=== PATIENT | male | born 1950 | race Caucasian/White ===

== ENCOUNTER 2022-04-10 07:49 | Outpatient (CLI) | payer MEDICARE, SELFPAY ==
[2022-04-10 14:34] LABS: Alanine Aminotransferase* 23 U/L (4-50); Aspartate Amino Transferase* 40 U/L (12-35); Cholesterol* 144 mg/dL (90-199); Triglycerides* 54 mg/dL (40-149)
[2022-04-10 14:35] LABS: HDL Cholesterol* 64 mg/dL (>=40); LDL Cholesterol Calculated 69 mg/dL (<100)
== END 2022-04-10 07:50 | disposition home or self-care (01) ==
LOC: FRMLAB 07:50
PROVIDERS: PCP Family Medicine; Visit Provider Physician Assistant Medical
DX: E78.5 Hyperlipidemia, unspecified (principal)
CPT/HCPCS: 36415; 80061; 84450; 84460

== ENCOUNTER 2022-07-25 14:30 | Outpatient (CLI) | payer MEDICARE, SELFPAY ==
[2022-07-25 12:54] LABS: Albumin* 4.7 g/dL (3.3-5.0); Chloride* 104 mmol/L (96-114); Sodium* 140 mmol/L (135-149)
[2022-07-25 12:55] LABS: Potassium* 4.4 mmol/L (3.6-5.1)
[2022-07-25 12:56] LABS: Cholesterol* 179 mg/dL (90-199)
[2022-07-25 12:57] LABS: Alanine Aminotransferase* 22 U/L (4-50); Alkaline Phosphatase* 80 U/L (40-150); Aspartate Amino Transferase* 35 U/L (12-35); Bilirubin Total* 1.3 mg/dL (0.1-1.5); Blood Urea Nitrogen* 23 mg/dL (7-30); Carbon Dioxide* 26 mmol/L (20-32); Creatinine* 0.9 mg/dL (0.5-1.5); Estimated Glomerular Filt Rate 92 ml/min; Glucose* 91 mg/dL (60-115); Total Protein* 7.7 g/dL (6.0-8.3); Triglycerides* 104 mg/dL (40-149)
[2022-07-25 12:58] LABS: Calcium* 9.5 mg/dL (8.4-10.6); HDL Cholesterol* 64 mg/dL (>=40); LDL Cholesterol Calculated 94 mg/dL (<100)
[2022-07-28 08:50] LABS: Prostate Specific Antigen Free 0.7 ng/mL; Prostate Specific Antigen%Free 32 %; Prostate Specific AntigenTotal 2.2 ng/mL (0.0-4.0)
== END 2022-07-25 14:31 | disposition home or self-care (01) ==
PROVIDERS: PCP Family Medicine; Visit Provider Family Medicine
DX: E78.5 Hyperlipidemia, unspecified (principal); N40.0 Benign prostatic hyperplasia without lower urinary tract symptoms; N52.9 Male erectile dysfunction, unspecified; Z12.5 Encounter for screening for malignant neoplasm of prostate
CPT/HCPCS: 80053; 80061; 84153; 84154

== ENCOUNTER 2022-12-15 10:49 | Outpatient (CLI) | payer MEDICARE, SELFPAY | END 2022-12-15 10:50 | disposition home or self-care (01) | LOC: NFLDREF 12-17 13:35 | PROVIDERS: PCP Family Medicine; Referring Provider Family Medicine; Visit Provider Family Medicine | DX: Z00.00 Encounter for general adult medical examination without abnormal findings (principal); K62.5 Hemorrhage of anus and rectum; N40.0 Benign prostatic hyperplasia without lower urinary tract symptoms; E78.5 Hyperlipidemia, unspecified; E66.9 Obesity, unspecified | CPT/HCPCS: 87086; 87186 ==

== ENCOUNTER 2023-04-18 19:56 | Emergency (ER) | payer MEDICARE, SELFPAY ==
[2023-04-18 20:02] VITALS: BP 130/75; PULSE 73; RESP 20; TEMP 36.6; O2SAT 97
--- NOTE | 2023-04-18 20:12 | ED_ITS ---
HPI - General Adult General Chief complaint: Ear/Nose/Throat Problem Stated complaint: Foreign object lodged in throat Time Seen by Provider: 04/18/23 20:10 History of Present Illness HPI narrative: @ 1430, pt eating roast beef. beef caught in throat. pt has tried to vomit, unable to get obstruction out . pt able to breathe and speak without difficulty. pain rated 6/10 . pt has a history of this , vomiting in past has solved problem, today it has not. pt has tried to drink water, water comes back up. 72-year-old man presenting to the emergency department concern of impaction of roast beef in his esophagus. Is nauseated. He has intermittent intense pain. He has been somewhat obstructed in the past; 3 months ago was with some ham. Be able to pass this on his own though. Has never had an EGD. Would last 20 years has had to beto food with water often. He has tried to vomit only resulting water coming up basically. Not short of breath. History of CABG. Does not use nitro. No medications other than aspirin he says. tadalafil however comes up as potential interaction on orders. Related Data Home Medications Medication Instructions Recorded Confirmed aspirin 81 mg tablet,delayed 81 mg PO QDAY 07/23/22 12/16/22 release Previous Rx's Medication Instructions Recorded azelastine 0.05 % eye drops 1 drp ophthalmic (eye) BID #6 mL 07/23/22 mometasone 50 mcg/actuation nasal 2 spray intranasal BID #17 grams 07/23/22 spray tadalafil 20 mg tablet 20 mg PO .as Direc as needed PRN 07/23/22 sexual activity #90 tabs terazosin 2 mg capsule 2 mg PO QHS #90 caps 07/23/22 peg 3350-electrolytes 236 240 ml PO Q10M #4,000 mL 12/17/22 gram-22.74 gram-6.74 gram-5.86 gram solution (Golytely) ciprofloxacin HCl 500 mg tablet 500 mg PO Q12H #6 tabs 12/18/22 rosuvastatin 40 mg tablet 40 mg PO QDAY #90 tabs 12/18/22 Allergies Allergy/AdvReac Type Severity Reaction Status Date / Time tramadol Allergy Severe Vomiting Verified 12/16/22 10:00 Review of Systems Status of ROS: Reports: 6 or more systems reviewed and unremarkable except as noted in History and below [facility] Medical History History of seasonal allergies ?Z88.9 - Allergy status to unspecified drugs, medicaments and biological substances (ICD-10) History of multiple allergies ?Z88.9 - Allergy status to unspecified drugs, medicaments and biological substances (ICD-10) Surgical History Status post arthroscopy of right shoulder ?Z98.890 - Other specified postprocedural states (ICD-10) History of vasectomy ?Z98.52 - Vasectomy status (ICD-10) History of right inguinal hernia repair (09/05/10) ?Z98.890 - Other specified postprocedural states (ICD-10) ?Z87.19 - Personal history of other diseases of the digestive system (ICD-10) History of nasal septoplasty ?Z98.890 - Other specified postprocedural states (ICD-10) History of colonoscopy ?Z98.890 - Other specified postprocedural states (ICD-10) History of bilateral inguinal hernia repair ?Z98.890 - Other specified postprocedural states (ICD-10) ?Z87.19 - Personal history of other diseases of the digestive system (ICD-10) Family History Father Prostate cancer Social History Narrative: Consumes alcohol occasionally Does not use illicit drugs Nonsmoker Smoking Status: Never smoker Little interest or pleasure in doing things: not at all Feeling down, depressed, or hopeless: not at all Exam Narrative: Exam Narrative: Pleasant. Looks little uncomfortable. Generally flushed in his face. Oropharynx is moist no indication of injury or asymmetry. I do not hear any stridor. Lungs are generally clear though there seems to be some crepitus in the right lower lung. Extremities are well perfused without edema. Heart in a regular rate and rhythm. Const: Vital Signs, click to edit/add: Vital Signs - 24 hr 04/18/23 20:02 Temperature 97.9 F Pulse Rate [Right Pulse Oximeter] 73 Respiratory Rate 20 Blood Pressure [Ri ght Upper Arm] 130/75 Pulse Oximetry 97 Oxygen Delivery Me thod Room Air Documenting provider has reviewed patient's vital signs: yes Course Vital Signs Vital signs: Initial Vital Signs Temperature 97.9 F 04/18/23 20:02 Temperature Source Temporal Artery Scan 04/18/23 20:02 Pulse Rate 73 04/18/23 20:02 Pulse Rhythm Regular 04/18/23 20:02 Respiratory Rate 20 04/18/23 20:02 Blood Pressure 130/75 04/18/23 20:02 Blood Pressure Mean 93 04/18/23 20:02 Blood Pressure Position Sitting 04/18/23 20:02 Pulse Oximetry 97 04/18/23 20:02 Oxygen Delivery Method Room Air 04/18/23 20:02 Vital Signs Temperature 97.9 F 04/18/23 20:02 Pulse Rate 73 04/18/23 20:02 Respiratory Rate 20 04/18/23 20:02 Blood Pressure 130/75 04/18/23 20:02 Pulse Oximetry 97 04/18/23 20:02 Oxygen Delivery Method Room Air 04/18/23 20:02 Temperature 97.9 F 04/18/23 20:02 Pulse Rate 73 04/18/23 20:02 Respiratory Rate 20 04/18/23 20:02 Blood Pressure 130/75 04/18/23 20:02 Pulse Oximetry 97 04/18/23 20:02 Oxygen Delivery Method Room Air 04/18/23 20:02 Medical Decision Making MDM Narrative Medical decision making narrative: Has an emesis bag nearby. Given story would sound to be a complete esophageal obstruction/impaction. Confirming last dose of Cialis. Anticipating giving Zofran and nitro both ODT followed by easy gas. If this does not work IV placement calcium channel tom, nitro, possibly lorazepam. And then repeating EZ gas. Initial round of treatment seems to of allow for passage of this food bolus. He is swallowing water without difficulty. Seems much more comfortable. See patient discharge plan Discharge Plan Discharge Clinical Impression: Esophageal obstruction due to food impaction Patient Disposition: Home, Self-Care Condition: Improved Additional Instructions: May want to eat softer food over the next few days. I would follow-up with your primary care provider or possibly with general surgery or Dr. Pete marina at the [facility]. I think it is time to do an upper endoscopy. You might consider doing this though with some provider who would also be providing esophageal dilatation if necessary. There may be some other studies like a swallow study that would be helpful? Please discuss. Return as necessary. Prescriptions: No Action aspirin 81 mg tablet,delayed release (DR/EC) 81 mg PO QDAY mometasone 50 mcg/actuation spray,non-aerosol 2 spray intranasal BID Qty: 17 3RF azelastine 0.05 % drops 1 drp ophthalmic (eye) BID Qty: 6 3RF tadalafil 20 mg tablet 20 mg PO .as Direc as needed PRN (Reason: sexual activity) Qty: 90 3RF Rx Instructions: 1 tab by mouth every 24-48 hours as needed. terazosin 2 mg capsule 2 mg PO QHS Qty: 90 3RF peg 3350-electrolytes [Golytely] 236-22.74-6.74 -5.86 gram recon soln 240 ml PO Q10M Qty: 4000 0RF Rx Instructions: until fecal effluent is clear rosuvastatin 40 mg tablet 40 mg PO QDAY Qty: 90 3RF ciprofloxacin HCl 500 mg tablet 500 mg PO Q12H Qty: 6 0RF Follow Up/Referrals: Sylvia Foreman DO [Primary Care Provider] - Stand Alone Forms: [email or web address] Info Instructions
--- OUTSIDE RECORDS SUMMARY | 2023-04-18 20:30 | XMS_ITS | Patient Health Record ---
Author Name Unknown Organization [facility], Address [address] [place] [address] Care Team Providers Care Shoe Sticks Repairer Name Role Phone Robert Armenta Unavailable [phone] ALLERGIES No Known Allergies REASON FOR REFERRAL No Information MEDICATIONS Medication SIG (Take, Route, Frequency, Duration) Notes Start Date End Date Status Azelastine HCl 0.05 % INSTILL ONE DROP I N EACH EYE ONE TO TWO TIMES A DAY DIRECTED NEEDED Ophthalmic for 90 Days Active Atorvastatin Calcium 40 MG Oral for 90 Days Active Rosuvastatin Calcium 40 MG TAKE 1 TABLET BY MOUTH AT BEDTIME Oral for 90 Days Active Tadalafil 20 MG TAKE 1 TABLET BY DILLON TH EVERY 24-48 HOURS NEEDED FOR SEXUAL ACTIVITY DIRECTED Oral for 90 Days Active Mometasone Furoate 50 MCG/ACT INHALE TWO SPRAYS INTO BOTH NOSTRILS TWO TIMES A DAY NEEDED FOR SEVERE NASAL CONGESTION Nasal for 30 Days Active Terazosin HCl 2 MG Oral for 90 Days Active Tamsulosin HCl 0.4 MG TAKE TWO CAPSULES BY MOUTH EVERY DAY Oral for 90 Days Active SOCIAL HISTORY Tobacco Use: Social History Observation Description Date Details (start date - stop date) Never Smoker NA - NA Sex Assigned At : Social History Observation Description Sex Assigned At Unknown Tobacco Use/Smoking Question Answer Notes Are you a: never smoker Alcohol Screen (Audit-C) Question Answer Notes Did you have a drink contain ing alcohol in the past year? Yes How often did you have 6 or more drinks on one occasion in the past year? Never (0 point) How many drinks did you have on a typical day when you were drinking in the past year? 1 or 2 drinks (0 point) How often did you have a dri nk containing alcohol in the past year? 2 to 4 times a month (2 points) PROBLEMS Problem Type ICD Code Onset Dates Problem Status W/U Status Risk SNOMED Code Notes Problem Allergic rhinitis (J30.9) Active confirmed 00754835 VITAL SIGNS Heart Rate 68 /min 08/29/2022 Oximetry 98 % 08/29/2022 Weight-kg 86.18 kg 08/29/2022 Height 5 ft 6 in in 08/29/2022 Weight 190 lbs 08/29/2022 BMI 30.66 kg/m2 08/29/2022 Encounters Encounter Location Date Provider Diagnosis [facility] [place] [address] [place], [place] [id number] 08/29/2022 Robert Armenta Allergic rhinitis J30.9 [facility] [place] [address] [place], [place] [id number] 08/29/2022 Robert Armenta ASSESSMENTS Encounter Date Diagnosis Assessment Notes Treatment Notes Treatment Clinical Notes 08/29/2022 Allergic rhinitis (ICD-10 - J30.9) PLAN OF TREATMENT No Information Insurance Providers Payer Name Payer Address Payer Phone Subscriber Number Group Number Insured Name Patient Relationship to Insured Coverage Start Date Coverage End Date [facility] [address] [place] [address] [id number] JOVI Gottlieb KEYANNA Self - patient is the insured MEDICAL (GENERAL) HISTORY Medical History History ICD Code Please write in any medical problems you have been diagnosed with.: Heart and prostate. Please select any of the fol lowing conditions you have had:: prostate enlargement (BPH),sleep apnea. Please write in any neurologic problems you have:: None. Have you had cancer? 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 Surgical History Surgery Date(Month/Year) Hospitalization History Reason Date(Month/Year)
--- NOTE | 2023-04-18 20:44 | ED.NURSE ---
Pt given one zofran and one nitro tablet, then given EZ Gas. Pt states he was burping and thinks meat may have gone down and is no longer stuck in his esophagus. Pt able to drink water, small sips without throwing it up. Doctor notified.
== END 2023-04-18 21:30 | disposition home or self-care (01) ==
PROVIDERS: Emergency Provider Family Medicine; PCP Family Medicine
DX: T18.128A Food in esophagus causing other injury, initial encounter (principal)
CPT/HCPCS: 99283; 99284

== ENCOUNTER 2023-05-06 09:36 | Outpatient (CLI) | payer MEDICARE, SELFPAY ==
--- OUTSIDE RECORDS SUMMARY | 2023-05-06 09:40 | XMS_ITS | Patient Health Record ---
Author Name Unknown Organization [facility], Address [address] [place] [address] Care Team Providers Care Quality Control Operator Name Role Phone Robert Armenta Unavailable [phone] ALLERGIES No Known Allergies REASON FOR REFERRAL [...] Notes Problem Allergic rhinitis (J30.9) Active confirmed [id number] VITAL SIGNS Heart Rate 68 /min 08/29/2022 Oximetry 98 % 08/29/2022 Weight-kg 86.18 kg 08/29/2022 Height 5 ft 6 in in 08/29/2022 Weight 190 lbs 08/29/2022 BMI 30.66 kg/m2 08/29/2022 Encounters Encounter Location Date Provider Diagnosis [facility] [address] [place], [place] [id number] 08/29/2022 Robert Armenta [facility] [place] [address] [place], [place] [id number] 08/29/2022 Robert Armenta Allergic rhinitis J30.9 ASSESSMENTS Encounter Date Diagnosis Assessment Notes Treatment Notes Treatment Clinical Notes 08/29/2022 Allergic rhinitis (ICD-10 - J30.9) PLAN OF TREATMENT No Information Insurance Providers Payer Name Payer Address Payer Phone Subscriber Number Group Number Insured Name Patient Relationship to Insured Coverage Start Date Coverage End Date [facility] [address] [place] [address] [id number] JOVI Gottlieb KEYANNA Self - patient is [...]
--- NOTE | 2023-05-06 09:45 | CRLHL7_ITS ---
For Patients: As a result of the Century Cures Act, medical imaging exams and procedure reports are released immediately into your electronic medical record. You may view this report before your referring provider. If you have questions, please contact your health care provider. Technique: Double-contrast esophagram performed after the uneventful administration of effervescent crystals and thick barium followed by thin barium. Fluoroscopy time 92 second. Indication: Esophageal Obstruction Comparison: None. Findings: Spontaneous reflux noted to the proximal esophagus. Decreased esophageal motility. Inflammatory changes involving the distal esophagus suspected. Small sliding hernia. No aspiration. A small posterior or pharyngeal diverticulum is present. Impression: Large volume spontaneous reflux to the proximal esophagus along with suspicion of distal reflux esophagitis. Associated delayed esophageal transit and small sliding hiatal hernia. Dictated by Robert Beaulieu MD @ 05/06/2023 10:54:13 AM (Electronically Signed)
== END 2023-05-06 09:37 | disposition home or self-care (01) ==
LOC: RAD 09:36
PROVIDERS: PCP Family Medicine; Visit Provider Family Medicine
DX: K22.2 Esophageal obstruction (principal); K21.9 Gastro-esophageal reflux disease without esophagitis; T18.128A Food in esophagus causing other injury, initial encounter
CPT/HCPCS: 74221

== ENCOUNTER 2023-05-19 10:45 | Outpatient (CLI) | payer MEDICARE, SELFPAY ==
--- NOTE | 2023-05-19 11:50 | W.ANESCHARGE ---
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
--- NOTE | 2023-05-19 12:08 | W.ANESCHARGE ---
Anesthesia Charges Start Date/Time Anesthesia Start Date: 05/19/23 Anesthesia Start Time: 11:29 Stop Date/Time Anesthesia Stop Date: 05/19/23 Anesthesia Stop Time: 11:47 Summary Extremes of Age - Over 70 or under 1: MDA
== END 2023-05-19 10:46 | disposition home or self-care (01) ==
LOC: OP CLINIC 10:46
PROVIDERS: PCP Family Medicine; Visit Provider Surgery
DX: R13.10 Dysphagia, unspecified (principal); K22.89 Other specified disease of esophagus; K44.9 Diaphragmatic hernia without obstruction or gangrene; K21.00 Gastro-esophageal reflux disease with esophagitis, without bleeding; K31.89 Other diseases of stomach and duodenum
CPT/HCPCS: 00731; 43239; 88305; 99100; J2704; J3490

== ENCOUNTER 2023-08-13 09:17 | Outpatient (CLI) | payer MEDICARE, SELFPAY | END 2023-08-13 09:18 | disposition home or self-care (01) | LOC: FRMREF 09:18 | PROVIDERS: PCP Family Medicine; Visit Provider Family Medicine | DX: E78.2 Mixed hyperlipidemia (principal) | CPT/HCPCS: 80053; 80061 ==

== ENCOUNTER 2024-03-16 09:42 | Emergency (ER) | payer MEDICARE, SELFPAY ==
[2024-03-16] VITALS (14 sets, daily range): BP systolic 101–137; BP diastolic 51–87; PULSE 52–68; RESP 18; TEMP 35.9; O2SAT 94–98; BMI 30.7
--- NOTE | 2024-03-16 10:09 | CRLHL7_ITS ---
For Patients: As a result of the Cures Act, medical imaging exams and procedure reports are released immediately into your electronic medical record. You may view this report before your referring provider. If you have questions, please contact your health care provider. Indication: Off balance, falls to the left, right hand tremor Technique: Multiplanar, multisequence MRI of the brain obtained without contrast. Comparison: None Findings: No evidence for recent hemorrhage or infarct. No midline shift, hydrocephalus or herniation. Mild generalized cerebral volume loss. Scattered FLAIR hyperintense foci throughout the supratentorial white matter and joseph, typical of chronic microangiopathy. Unremarkable midline structures. Grossly preserved major expected intracranial flow voids. Normal calvarial marrow signal. Diffuse paranasal sinus mucosal thickening, with multifocal ethmoid air cell opacification, and bilateral inferior maxillary sinus mucous retention cysts/polyps. No mastoid effusion. Unremarkable orbits. Impression: 1. No evidence of acute intracranial abnormality. 2. Mild generalized cerebral volume loss and mild chronic microangiopathy changes. 3. Diffuse paranasal sinus mucosal inflammatory changes, with multifocal ethmoid air cell opacification and bilateral maxillary sinus mucous retention cysts/polyps. Dictated by Jody Hastings MD @ 03/16/2024 11:02:48 AM (Electronically Signed)
--- OUTSIDE RECORDS SUMMARY | 2024-03-16 10:21 | XMS_ITS | Patient Health Record ---
Author Organization [facility], Address [address] [place] [address] Care Team Providers Care Audio Production Engineer Name Role Phone Robert Armenta [facility] [phone] Allergies No Known Allergies Reason For Referral No Information Medications Medication SIG (Take, Route, Frequency, Duration) Notes Start Date End Date Status Atorvastatin Calcium 40 MG Oral for 90 Days Active Azelastine HCl 0.05 % INSTILL ONE DROP I N EACH EYE ONE TO TWO TIMES A DAY DIRECTED NEEDED Ophthalmic for 90 Days Active Tamsulosin HCl 0.4 MG TAKE TWO CAPSULES BY MOUTH EVERY DAY Oral for 90 Days Active Terazosin HCl 2 MG Oral for 90 Days Active Social History Tobacco Use: Social History Observation Description Date Details (start date - stop date) Never Smoker NA - NA Tobacco Use/Smoking Question Answer Notes Are you a: never smoker Alcohol Screen (Audit-C) Question Answer Notes Did you have a drink contain ing alcohol in the past year? No How often did you have 6 or [...] to 4 times a month (2 points) Problems Problem Type SNOMED Code ICD Code Onset Dates Problem Status W/U Status Risk Notes Problem [id number] Allergic rhinitis (J30.9) Active confirmed Vital Signs Heart Rate 60 /min 09/10/2023 Oximetry 98 % 09/10/2023 Weight-kg 86.18 kg 09/10/2023 Height 5 ft 6 in in 09/10/2023 Weight 190 lbs 09/10/2023 BMI 30.66 kg/m2 09/10/2023 Encounters Encounter Location Date Provider Diagnosis [facility] [place] [address] [place], [place] [phone] 09/10/2023 Robert Armenta Seasonal allergic rhinitis due to pollen J30.1 Assessments Encounter Date Diagnosis (ICD Code) Assessment Notes Treatment Notes Treatment Clinical Notes 09/10/2023 Seasonal allergic rhinitis due to pollen (ICD-10 - J30.1) 09/10/2023 Other Patient doing w ell on immunotherapy I will continue the current regimen and I will see him back in a year. Plan Of Treatment No Information Insurance Providers Payer Name Payer Address Payer Phone Subscriber Number Group Number Insured Name Patient Relationship to Insured Coverage Start Date Coverage End Date [facility] [address] [place] [address] [id number] JOVI Gottlieb KEYANNA Self - patient is the insured Medical (General) History Medical History History ICD Code Please write in any medical problems you have been diagnosed with.: Heart and prostate Please select any of the fol lowing conditions you have had:: prostate enlargement (BPH),sleep apnea Please write in any neurologic problems you have:: None Have you had cancer? Please specify if y es: Yes skin cancer basil cell Please select any of the fol lowing conditions you have had:: coronary artery disease, gastroesophageal reflux disease (GERD), prostate enlargement (BPH), sleep apnea Please write in any neurologic problems you have:: None Have you had cancer? Please specify if y es: Yes basal cell Please write in any medical problems you have been diagnosed with.: Prostrate sleep apena and heart Surgical History Surgery Date(Month/Year) Hospitalization History Reason Date(Month/Year)
--- OUTSIDE RECORDS SUMMARY | 2024-03-16 10:22 | XMS_ITS | Clinical Summary ---
Author Organization [facility] Address [place], [place] [address] Care Team Providers Care Preschool Assistant Principal Name Role Phone Compa Chirinos MD Primary Care Provider [phone] Allergies No known active allergies Medications Medication Sig Dispensed Refills Start Date End Date Status atorvastatin (LIPITOR) 40 mg tablet Take 40 mg by mouth at bedtime. 3 12/07/2018 Active metoprolol tartrate (LOPRESSOR) 25 mg tablet Take 12.5 mg by mouth once daily. 2 10/20/2018 Active tamsulosin (FLOMAX) 0.4 mg capsule Take 0.8 mg by mouth once daily in the afternoon. 2 11/23/2018 Active tadalafil (CIALIS) 5 mg tabletIndications:Davie ign prostatic hyperplasia with weak urinary stream Take 1 tablet by mouth once daily if needed for Erectile Dysfunction. Take 30 minutes before sexual activity. 30 tablet 11 01/05/2019 Active aspirin (ECOTRIN) 81 mg enteric coated tablet Take 1 tablet by mouth once daily with a meal. 0 08/09/2019 Active Active Problems Problem Noted Date Diagnosed Date Coronary artery disease invo lving king salmon coronary artery of king salmon heart without angina pectoris 10/11/2021 Mixed hyperlipidemia 10/11/2021 History of colon polyps 08/10/2019 Overview: Colonoscopy 07/2019 normal, repeat in 5 years Urinary frequency 02/07/2019 Benign prostatic hyperplasia with weak urinary s tream 01/05/2019 Social History Tobacco Use Types Packs/Day Years Used Date Smoking Tobacco: Never Smokeless Tobacco: Never Tobacco Cessation:Counseling Given: Yes Alcohol Use Standard Drinks/Week Comments Not Currently 0 (1 standard drink = 0.6 oz pur e alcohol) Social Connections Answer Date Recorded Frequency of Communication with Friends and Fami ly Not on file 12/10/2023 Financial Resource Strain Answer Date R ecorded Difficulty of Paying Living Expenses Not on file 10/11/2021 Difficulty of Paying Living Expenses Not on file 10/11/2021 Sex and Gender Information Value Date Recorded Sex Assigned at Not on file Gender Identity Not on file Sexual Orientation Not on file Obstetrics History Last Filed Vital Signs Vital Sign Reading Time Taken Comments Blood Pressure 126/77 07/28/2019 3:28 PM [employer]ELLET [employer] INSPECTOR Pulse 51 07/28/2019 3:28 PM [employer]LET [employer] INSPECTOR Temperature 36.4 ??C (97.5 ??F) 02/07/2019 1 0:10 AM CDT Respiratory Rate 16 02/07/2019 10:1 0 AM CDT Oxygen Saturation 97% 07/28/2019 3:2 8 PM P[employer]LET [employer] INSPECTOR Inhaled Oxygen Concentration - - Weight 97.5 kg (214 lb 14.4 oz) 07/28/2019 3:28 PM PELLET [employer] INSPECTOR Height 165.1 cm (5' 5) 01/05/2019 2:38 PM CDT Per patient Body Mass Index 35.76 01/05/2019 2:38 PM CDT Plan of Treatment Health Maintenance Due Date Last Done Comments Tdap 1962 Depression screening for age 12+ 1963 Hepatitis C screening for age 18-79 1969 Tetanus booster 1971 Lipids for age 45-75 1996 Zoster (shingles) series for age 50+ (1 of 2) 2001 Medicare Wellness for age 65+ 2016 Pneumococcal series for age 65+ (1 of 1 - PCV) 2016 BMI (ht and wt on same day) for age 18+ 01/06/2020 0 01/05/2019 COVID-19 vaccine series ( season) 2023 11/24/2020, 11/03/2020 Influenza for age 65+ 04/24/2024 Colonoscopy through age 75 08/09/2024 08/09/2019, Procedures Procedure Name Priority Date/Time Associated Diagnosis Comments COLONOSCOPY 08/09/2019 9:14 AM PELLET POST INSPECTOR from Last 3 Months or Most Recently Relevant to Health Maintenance Results * COLONOSCOPY (08/09/2019 9:14 AM PELLET POST INSPECTOR) 08/09/2019 9:14 AM PELLET POST INSPECTOR Narrative Transcriptions Fran Freeman MD - 08/09/2019 12:22 PM CST Patient Name: Osbaldo Betts Procedure Date: 08/09/2019 Gender: Male Date of : 1950 Admit Type: Outpatient Procedure: Colonoscopy Proceduralist: Fran Freeman MD , Danita Holman RN(Nurse) Indications/Pre-Op Diagnosis: Last colonoscopy: March 2017, Clinically significant diarrhea of unexplained origin, Personal history of colonic polyps Medications: Fentanyl 100 micrograms IV, Midazolam 4 mgIV, The level of sedation administered wasmoderate Procedure Description: The patient had risks, benefits and alternatives explained to andgave informed consent. The patient had a stable cardiopulmonary status and judged an adequate candidate for conscious sedation. The colonoscope was passed through the anus and advanced to 6 cm into the ileum. The colonoscopy was performed without difficulty. Thepatient tolerated the procedure well. The quality of the bowel preparationwas good. The terminal ileum, ileocecal valve, appendiceal orifice, and rectum were photographed. Complications: No immediate complications. Estimated Blood Loss & Specimen: Estimated blood loss: none. Specimen collected - Yes and sent to Laboratory Findings: The perianal and digital rectal examinations were normal. The terminal ileum appeared normal. Biopsies for histology were taken with a cold forceps from the entire colon for evaluation of microscopic colitis. The colon (entire examined portion) was moderately redundant. The exam was otherwise without abnormality on direct and retroflexion views. Impressions/Post-Op Diagnosis: - The examined portion of the ileum was normal. - Redundant colon. - The examination was otherwise normal on direct and retroflexionviews. - Biopsies were taken with a cold forceps from the entire colon for evaluation of microscopic colitis. Recommendation: - Patient has a contact number available for emergencies. The signsand symptoms of potential delayed complications were discussed with the patient. Return to normal activities tomorrow. Written discharge instructions were provided to the patient. - Resume previous diet. - Continue present medications. - Await pathology results. - Repeat colonoscopy in 5 years for surveillance. Moderate Sedation: Moderate (conscious) sedation was administered by the endoscopy nurse and supervised by the endoscopist. The following parameters were monitored: oxygen saturation, heart rate, respiratory rate, blood pressure, adequacy of pulmonary ventilation and reponse to care. [facility] and nursing notes for moderate sedation details. Total physician intraservice time was 26 minutes. Fran Freeman MD 08/09/2019 12:21:57 PM This report has been signed electronically. Note Initiated On: 08/09/2019 9:14 AM Procedure Code(s): --- Professional --- 91533, Colonoscopy, flexible; with biopsy, single or multiple Diagnosis Code(s): --- Professional --- R19.7, Diarrhea, unspecified Z86.010, Personal history of colonicpolyps Q43.8, Other specified congenitalmalformations of intestine CPT copyright 2018 [employer]. All rights reserved. The codes documented in this report are preliminary and upon equipment engineer reviewmay be revised to meet current compliance requirements. Scope In: 10:02:30 AM Scope Withdrawal Time 0 hours 10 minutes 37 seconds Scope Out: 10:26:44 AM Fran Freeman MD PROCEDURE ORD from Last 3 Months or Most Recently Relevant to Health Maintenance Care Teams Preschool Assistant Principal Relationship Specialty Start Date End Date Compa Chirinos MD [address] [place] [id number] PCP - General Family Practice 07/28/19
--- OUTSIDE RECORDS SUMMARY | 2024-03-16 10:22 | XMS_ITS | Data Portability ---
Author Organization [place] [facility] Address [address] [place] [address] Assessment No assessment recorded. Plan of Treatment Reminders Order Date Submit Date Provider Last Modified By Organization Details Last Modified Time Details Appointments ESTABLISH ED 10 2023 09:40A Coco Castellano MD Not available Not available Not available Lab urinalysi s, [facility], [address], [place], [address], 01/20/2023 11:19:40 Referral None recorded. Procedures bladder scan (PROC) [facility]23 [facility] [address], [address], [place], [address], 01/20/2023 11:19:40 bladder scan (PROC) [id number], [address], [address], [place], [address], 03/24/2023 14:42:54 Surgeries None recorded. Imaging None recorded. Medication Orders tadal[facility]il 5 mg tablet 2022 023 [id number] [address] , [place], [address], 01/20/2023 11:27:49 tadalafil 5 mg tablet 2022 023 [id number], [address], [place], [address], 03/24/2023 14:53:22 Patient TargetsNo targets recorded. Patient Instructions Encounter Date Encounter Id Patient Instructions Last Modified By Organization Details Last Modified Time 01/20/2023 [id number] will try adding daily tadalafil 5mg in the AM. plan recheck in 2 months. [email or web address] Not available 01/20/2023 11:29:16 03/24/2023 [id number] will continue terazosin and tadalafil 5mg daily. plan rtc 1 year [email or web address] Not available 03/24/2023 14:53:44 Reason for Referral None Reported. Results Created Date Observation Date Name Description Value Unit Range Abnormal Flag LastModifiedBy Organization Detail LastModifiedTime 01/21/2001/20/2023 bladd er scan (PROC ) Volume (in mL) 85ml Not Available [address] [address], [place], [address], 01/20/2023 11:19:31 01/21/20 23 01/20/2023 urina lysis , dipst ick pH-Status 7.0 Not Available [address] [address], [place], [address], 01/20/2023 11:09:58 03/24/20 23 03/24/2023 bladd er scan (PROC ) Volume (in mL) 0 Not Available [address] [place], [address], 03/24/2023 14:40:39 Result Notes None recorded. Problems Name Status Onset Date Resolution Date Notes Provider Name and Address Organization Details Recorded Time Lower urinary tract symptoms due to benign prostatic hypertrophy Active 01/21/20 Alan Castellano MD [address], [place], [address], [facility] 01/20/2023 11:25:46 Problem Notes None recorded. Procedures Surgical History Date Name Laterality Status Provider Name and Address Organization Details Recorded Time 3 Bladder Scan completed Zohreh loving, [facility] 03/24/2023 14:42:46 3 Bladder Scan completed Zhen loving, [facility] 01/20/2023 11:19:44 Cardiac Surgery completed Zhne Jones [facility], [facility] 01/20/2023 11:08:30 Colonoscopy completed Zhen loving, [facility] 01/20/2023 11:08:38 Heart Surgery completed Zhen Jones [facility], [facility] 01/20/2023 11:08:46 Hernia Repair completed Zhen Jones [facility], [facility] 01/20/2023 11:08:55 Orthopedic Surgery completed Zhen loving, [facility] 01/20/2023 11:09:02 Vasectomy completed Zhen Jones [facility], [facility] 01/20/2023 11:09:09 Imaging Results None recorded. Procedure Notes None recorded. Medical Equipment None Reported. Allergies Allergen ID Allergen Name Allergen Category Reaction Reaction Severity Criticality Documentation Date Start Date Code Code System Note Provider Name and Address Organization Details Recorded Time 103834 tramadol medicatio n Not available Not available Not available 01/20/2023 92233 RxNorm Zhen loving, [facility] 3 11:05:40 [id number] Cipro medicatio n Not available Not available Not available 01/20/2023 62178 3 RxNorm Samia Robert loving, [facility] 3 11:05:46 Medications Name Sig Start Date Stop Date Status Note LastModified by Organization Details LastModified Time atorvastatin 40 mg tablet TAKE ONE TABLET BY MOUTH EVERY DAY active Not Available Not Available No t Available azelastine 0.05 % eye drops INSTILL 1 DROP INTO AFFECTED EYE(S) BY OPHTHALMIC ROUTE 2 TIMES PER DAY active Not Available Not Available No t Available clindamycin HCl 300 mg capsule TAKE ONE CAPSULE BY MOUTH THREE TIMES A DAY UNTIL GONE active Not Available Not Available N ot Available azithromycin 250 mg tablet TAKE 2 TABLETS BY MOUTH DAY 1, THEN TAKE 1 TABLET BY MOUTH ONCE DAILY DAYS 2-5 active Not Available Not Available No t Available ciprofloxaci n 500 mg tablet TAKE ONE TABLET BY MOUTH EVERY 12 HOURS active Not Available Not Available No t Available terazosin 2 mg capsule TAKE ONE CAPSULE BY MOUTH EVERY DAY AT BEDTIME active Not Available Not Available No t Available tamsulosin 0.4 mg capsule TAKE TWO CAPSULES BY MOUTH EVERY DAY active Not Available Not Available No t Available mometasone 50 mcg/actuatio n nasal spray INHALE TWO SPRAYS INTO BOTH NOSTRILS TWO TIMES A DAY NEEDED FOR SEVERE NASAL CONGESTION active Not Available Not Available N ot Available methylpredni solone 4 mg tablets in a dose pack FOLLOW PACKAGE DIRECTIONS active Not Available Not Available N ot Available fluticasone propionate 50 mcg/actuatio n nasal spray,suspen alcon APPLY TWO SPRAYS IN THE AFFECTED NOSTRIL TWICE A DAY NEEDED active Not Available Not Available No t Available rosuvastatin 40 mg tablet TAKE ONE TABLET BY MOUTH EVERY DAY active Not Available Not Available No t Available tadalafil 5 mg tablet Take 1 tablet every day by oral route for 90 days. 2022 active Not Available Not Available Not Avai lable tadalafil 20 mg tablet TAKE 1 TABLET BY MOUTH EVERY 24-48 HOURS NEEDED FOR SEXUAL ACTIVITY DIRECTED active Not Available Not Available No t Available GaviLyte-G 236 gram-22.74 gram-6.74 gram-5.86 gram oral solution DRINK 240 ML BY MOUTH EVERY 10 MINUTES UNTIL FECAL EFFLUENT IS CLEAR active Not Available Not Available No t Available aspirin 81 mg capsule Take 1 capsule every day by oral route. active Not Available Not Available No t Available Vitals Date Recorded Body height Body mass index (BMI) Body weight Provider Name and Address Organization Details Last Updated DateTime 01/20/2023 167.64 cm 30.7 kg/m2 44054.55 g Zhen Jones [facility] 01/20/2023 11:05:19 Date Recorded Body height Body mass index (BMI) Body weight Provider Name and Address Organization Details Last Updated DateTime 03/24/2023 167.64 cm 30.7 kg/m2 32970.55 g Zohreh Perkins [facility] 03/24/2023 14:39:06 Social History Question Answer Notes LastModified by Organizat ion Details LastModified Time Tobacco Smoking Status [facility] 11:09:38 What Is Your Level Of Alcohol Consumption? Occasional Information not available 01/20/2023 How Many Times Per Week Do You Consume Alcohol? 1-2 Times Per Week Information not available 01/20/2023 What Is Your Level Of Caffeine Consumption? Occasional Information not available 01/20/2023 What Was The Date Of Your Most Recent Tobacco Screening? 03/24/2023 [email or web address] Information not available 03/24/2023 Have You Ever Been Counseled For Unhealthy Alcohol Use? No [email or web address] Information not available 03/24/2023 Do You Use Any Illicit Or Recreational Drugs? No [email or web address] Information not available 03/24/2023 Has Tobacco Cessation Counseling Been Provided? No [email or web address] Information not available 03/24/2023 Do You Or Have You Ever Used Any Other Forms Of Tobacco Or Nicotine? No [email or web address] Information not available 03/24/2023 Sex: Unknown Functional Status None recorded. Mental Status None recorded. Family History Relationship Description Onset Age of this Age Resolved Age Notes Father Family history of malignant neoplasm of prostate Father Family history of ca rdiac disorder Medical History Condition Response Other N High Blood Pressure N Kidney Stones N Lung Disease N Depression N GERD/Acid Reflux N Sexually Transmitted Infection N Cancer N High Cholesterol Y Diabetes N Bleeding Disorder N Heart Disease Y Immunizations Vaccine Type Date Status Provider Name and Address Organization Details Recorded Time zoster recombinant 09/24/2020 completed Zohreh loving [facility] 03/24/2023 14:39:11 zoster recombinant 01/22/2021 completed Zohreh loving [facility] 03/24/2023 14:39:11 COVID-19, mRNA, LNP-S, PF, 30 mcg/0.3 mL dose 11/03/2020 completed Zohreh loving [facility] 03/24/2023 14:39:11 COVID-19, mRNA, LNP-S, PF, 30 mcg/0.3 mL dose 11/24/2020 [facility] 03/24/2023 14:39:11 pneumococcal polysaccharide PPV23 01/31/2016 completed December null, [facility] 03/24/2023 14:39:11 Tdap 09/04/2009 completed December null, [facility] 03/24/2023 14:39:11 Pneumococcal conjugate PCV 13 03/30/2017 completed December null, [facility] 03/24/2023 14:39:11 Hep B, unspecified formulation 01/09/1992 completed December null, [facility] 03/24/2023 14:39:11 Hep B, unspecified formulation 07/11/1991 completed Zohreh December null, [facility] 03/24/2023 14:39:11 Td (adult), 2 Lf tetanus toxoid, preservative free, adsorbed 07/31/2020 completed Zohreh December null, [facility] 03/24/2023 14:39:11 Past Encounters Encounter ID Performer Location Encounter Start Date Encounter Closed Date Diagnosis/Indication Diagnosis SNOMED-CT Code [id number] Alan Castellano MD [address] [place] [address] 01/20/2023 10:39:36 01/27/2023 13:00:26 Lower urinary tract symptoms due to benign prostatic hypertrophy [id number] Alan Castellano MD [address] [place] [address] 03/24/2023 14:17:47 03/30/2023 08:53:20 Lower urinary tract symptoms due to benign prostatic hypertrophy [id number] Health Concerns Section Related Observation LastModified by Organization Detai ls LastModified Time None Recorded Concern Status LastModified by Organization Details LastModified Time None Recorded Advance Directives Directive None Recorded Payers Encounter Date Sequence Insurance Name Policy Number Policy Levy Covered Member ID Levy Member ID Guarantor Name 01/20/2023 1 [place] [id number] Osbaldo Betts [id number] Osbaldo Betts 01/20/2023 2 [place] [employer] [facility] Osbaldo Betts [id number] Osbaldo Betts 03/24/2023 1 [place] [id number] Osbaldo Betts [id number] Osbaldo Betts Notes Date Note Type Note Provider Name and Address Organization Details Recorded Time 01/20/2023 text/html HPI Notes: sent for BPH evaluation. been taking terazosin 2mg for voiding. helps some. no heme/dysuria. Dad had CaP. had PSA done in November per patient. has nocturia 3-4 times, less now since got a new CPAP. hesitancy and post void dribbling. UA clear and PVR 85ml today. Alan Castellano MD [address] [place] [address],[address], [address], [facility] 01/20/2023 11:29:30 03/24/2023 text/html HPI Notes: follow up BPH taking terazosin 2mg daily and added [id number] last visit and doing better now, PVR down to 0ml today. no SE's. Alan Castellano MD [address] [place] [address],[address], [place], [address], [facility] 03/24/2023 14:54:24
[2024-03-16 10:36] LABS: Basophils Percent Auto 0.5 % (0.0-3.0); Eosinophils Percent Auto 9.1 % (0.0-7.0); Hematocrit 37.7 % (37.0-53.0); Hemoglobin* 11.8 gm/dL (13.5-17.5); Mean Corpuscular HGB Conc 31 gm/dL (32-36); Mean Corpuscular Hemoglobin 25 pg (26-34); Mean Corpuscular Volume 81 fL (80-100); Monocytes Percent Auto 12.2 % (0.0-11.0); Neutrophils Percent Auto 47.2 % (42.0-72.0); Platelet Count* 152 K/uL (140-440); RDW Coefficient of Variation % 17.3 % (11.5-15.5); Red Blood Count 4.65 m/uL (4.30-5.90); White Blood Count* 3.84 K/uL (4.50-11.00)
[2024-03-16 10:40] LABS: Slide Review Reflex No
[2024-03-16 10:50] LABS: Albumin* 4.6 g/dL (3.3-5.0); Chloride* 104 mmol/L (96-114)
[2024-03-16 10:51] LABS: Potassium* 4.2 mmol/L (3.6-5.1); Sodium* 137 mmol/L (135-149)
[2024-03-16 10:53] LABS: Anion Gap 6 mEq/L (7-15); Aspartate Amino Transferase* 34 U/L (12-35); Bilirubin Direct* 0.3 mg/dL (0.0-0.5); Bilirubin Total* 0.8 mg/dL (0.1-1.5); Carbon Dioxide* 27 mmol/L (20-32); Creatinine* 0.8 mg/dL (0.5-1.5); Est. Creatinine Clearance* 60.26; Estimated Glomerular Filt Rate 94 ml/min; Total Protein* 7.7 g/dL (6.0-8.3)
[2024-03-16 10:54] LABS: Alanine Aminotransferase* 19 U/L (4-50); Alkaline Phosphatase* 67 U/L (40-150); Blood Urea Nitrogen* 21 mg/dL (7-30); Calcium* 9.3 mg/dL (8.4-10.6); Glucose* 119 mg/dL (60-115)
[2024-03-16 11:06] LABS: NT Pro B Type NatriureticPept* 44 pg/mL
[2024-03-16] MEDS: 0.9 % SODIUM CHLORIDE 1000 ml 1,000 ML IV (11:11)
--- NOTE | 2024-03-16 11:36 | ED_ITS ---
HPI - General Adult General Date Seen: 03/16/24 Chief complaint: Unspecified Complaint, Adult Stated complaint: Dizzy, unsteady on feet Time Seen by Provider: 03/16/24 09:55 Source: patient, family, RN notes reviewed and old records reviewed Mode of arrival: ambulatory Limitations: no limitations History of Present Illness HPI narrative: Patient is a 73-year-old here with his for evaluation of some symptoms which he has noticed for the past week or so. He says when he stands up he feels off balance, he notes that this tends to improve as he gets going but initially he will fall to the left. If he is laying still he does not have any symptoms. He also notes fatigue, even though he sleeping 8-10 hours a night. He also has been says having some pain and the outside of his left hip, no trauma. He denies any systemic symptoms such as fevers, night sweats, nausea, vomiting, diarrhea, black or bloody stools, chest pain, palpitations, fainting, unusual abdominal or back pain, urinary symptoms. He has not had any other focal neurologic changes. He does not smoke, he has a couple of cocktails a day. Related Data Home Medications ?Medication ?Instructions ?Recorded ?Confirmed aspirin 81 mg tablet,delayed 81 mg PO QDAY 07/23/22 02/02/24 release fluticasone propionate 50 1 inh inhalation BID 12/10/23 02/02/24 mcg/actuation blister powder for inhalation multivitamin 1 tab PO QAM 12/10/23 02/02/24 tadalafil 5 mg tablet 5 mg PO QDAY 12/10/23 02/02/24 Previous Rx's ?Medication ?Instructions ?Recorded azelastine 0.05 % eye drops 1 drp ophthalmic (eye) BID #6 mL 07/23/22 tadalafil 20 mg tablet 20 mg PO .as Direc as needed PRN 07/23/22 sexual activity #90 tabs rosuvastatin 40 mg tablet 40 mg PO QDAY #90 tabs 09/14/23 terazosin 2 mg capsule 2 mg PO QHS #90 caps 09/14/23 Allergies Allergy/AdvReac Type Severity Reaction Status Date / Time tramadol Allergy Severe Vomiting Verified 02/02/24 09:53 Review of Systems Status of ROS: Reports: 10 or more systems reviewed and unremarkable except as noted in History and below [facility] Medical History History of seasonal allergies ?Z88.9 - Allergy status to unspecified drugs, medicaments and biological substances (ICD-10) History of multiple allergies ?Z88.9 - Allergy status to unspecified drugs, medicaments and biological substances (ICD-10) Surgical History History of surgery ?Z98.890 - Other specified postprocedural states (ICD-10) Status post arthroscopy of right shoulder ?Z98.890 - Other specified postprocedural states (ICD-10) History of vasectomy ?Z98.52 - Vasectomy status (ICD-10) History of right inguinal hernia repair (09/05/10) ?Z98.890 - Other specified postprocedural states (ICD-10) ?Z87.19 - Personal history of other diseases of the digestive system (ICD-10) History of nasal septoplasty ?Z98.890 - Other specified postprocedural states (ICD-10) History of colonoscopy ?Z98.890 - Other specified postprocedural states (ICD-10) History of bilateral inguinal hernia repair ?Z98.890 - Other specified postprocedural states (ICD-10) ?Z87.19 - Personal history of other diseases of the digestive system (ICD-10) Family History Father Prostate cancer Social History Narrative: Consumes alcohol occasionally Does not use illicit drugs Nonsmoker Smoking Status: Never smoker Little interest or pleasure in doing things: not at all Feeling down, depressed, or hopeless: not at all Exam Narrative: Exam Narrative: Vital signs as noted above. In general, an alert, well-appearing patient. Head: Normocephalic, atraumatic. Eyes: Pupils are equal reactive. Extraocular movements are full. Conjunctivae are normal. No nystagmus. ENT: Mucous membranes are moist. Throat is normal. Tongue is midline. Neck: Supple without lymphadenopathy. Heart: Regular rate and rhythm. No murmur or rub. Lungs: Clear bilaterally. No increased work of breathing, crackles or wheezes. Abdomen: Soft and nontender. No organomegaly. Extremities: Well perfused. No edema. No calf tenderness. Pulses intact. Neurologic: Patient is alert and oriented to person and place. Speech is fluent. Face is symmetric. No ataxia, cerebellar function intact on finger- nose testing. When I had him stand up, he did kind of sway and then had 1 step for he fell little bit to the left. Gait is otherwise not ataxic or wide-based. Romberg is positive however. He has a slight tremor in his right hand which his says has been there for a little while and seems to be getting worse. Strength is equal in upper and lower extremities. Affect: Normal. Skin: Warm and dry. Well perfused. Const: Vital Signs, click to edit/add: Vital Signs - 24 hr 03/16/24 09:46 03/16/24 09:55 03/16/24 09:56 Temperature 96.6 F L Pulse Rate 63 64 Pulse Rate [Pulse Oximeter] 60 Pulse Rate [orthos tatic lying Right Pulse Oximeter] Pulse Rate [orthos tatic sitting Righ t Pulse Oximeter] Pulse Rate [orthos tatic standing Rig ht Pulse Oximeter] Respiratory Rate 18 Blood Pressure 104/51 L Blood Pressure [Ri ght Upper Arm] 101/52 L Blood Pressure [or thostatic lying Ri ght Arm] Blood Pressure [or thostatic sitting Right Arm] Blood Pressure [or thostatic standing Right Arm] Pulse Oximetry 95 95 95 Oxygen Delivery Me thod Room Air 03/16/24 10:00 03/16/24 10:02 03/16/24 10:09 Temperature Pulse Rate 62 63 Pulse Rate [Pulse Oximeter] Pulse Rate [orthos tatic lying Right Pulse Oximeter] Pulse Rate [orthos tatic sitting Righ t Pulse Oximeter] Pulse Rate [orthos tatic standing Rig ht Pulse Oximeter] Respiratory Rate Blood Pressure 102/53 L Blood Pressure [Ri ght Upper Arm] Blood Pressure [or thostatic lying Ri ght Arm] Blood Pressure [or thostatic sitting Right Arm] Blood Pressure [or thostatic standing Right Arm] Pulse Oximetry 96 97 98 Oxygen Delivery Me thod 03/16/24 10:09 03/16/24 11:00 03/16/24 11:01 Temperature Pulse Rate 53 L 57 L Pulse Rate [Pulse Oximeter] Pulse Rate [orthos tatic lying Right Pulse Oximeter] 54 L Pulse Rate [orthos tatic sitting Righ t Pulse Oximeter] 56 L Pulse Rate [orthos tatic standing Rig ht Pulse Oximeter] 60 Respiratory Rate Blood Pressure 137/87 Blood Pressure [Ri ght Upper Arm] Blood Pressure [or thostatic lying Ri ght Arm] 137/87 Blood Pressure [or thostatic sitting Right Arm] 124/68 Blood Pressure [or thostatic standing Right Arm] 130/74 Pulse Oximetry 94 96 Oxygen Delivery Me thod 03/16/24 11:02 03/16/24 11:03 03/16/24 11:04 Temperature Pulse Rate 68 59 L Pulse Rate [Pulse Oximeter] Pulse Rate [orthos tatic lying Right Pulse Oximeter] Pulse Rate [orthos tatic sitting Righ t Pulse Oximeter] Pulse Rate [orthos tatic standing Rig ht Pulse Oximeter] Respiratory Rate Blood Pressure 124/68 130/70 Blood Pressure [Ri ght Upper Arm] Blood Pressure [or thostatic lying Ri ght Arm] Blood Pressure [or thostatic sitting Right Arm] Blood Pressure [or thostatic standing Right Arm] Pulse Oximetry 96 98 Oxygen Delivery Me thod Documenting provider has reviewed patient's vital signs: yes Course Course ED Course: Diagnostic considerations relatively broad at this time and include primary neurologic issues such as stroke, hemorrhage, mass along with cardiac, metabolic or hematologic disorders. He was not orthostatic by vital signs, did give him a L of fluid here and he went over for an MRI of the brain. This is read as fo llows by Radiology:Findings: No evidence for recent hemorrhage or infarct. No midline shift, hydrocephalus or herniation. Mild generalized cerebral volume loss. Scattered FLAIR hyperintense foci throughout the supratentorial white matter and joseph, typical of chronic microangiopathy. Unremarkable midline structures. Grossly preserved major expected intracranial flow voids. Normal calvarial marrow signal. Diffuse paranasal sinus mucosal thickening, with multifocal ethmoid air cell opacification, and bilateral inferior maxillary sinus mucous retention cysts/polyps. No mastoid effusion. Unremarkable orbits. Impression: 1. No evidence of acute intracranial abnormality. 2. Mild generalized cerebral volume loss and mild chronic microangiopathy changes. 3. Diffuse paranasal sinus mucosal inflammatory changes, with multifocal ethmoid air cell opacification and bilateral maxillary sinus mucous retention cysts/polyps. He does not have specific sinus symptoms, I suspect these issues are chronic and not likely related to his current symptoms aside from the fact that he may have viral vestibulitis type process. His labs are notable for a mildly depressed white blood cell count at 3.8 and hemoglobin of 11.8. He does note that last time he gave blood he was told that his hemoglobin was under 12 and so he was not able to give blood. He has a normal platelet count of a [id number]. He has had a colonoscopy he thinks last year which was unremarkable and denies any GI blood loss. Electrolytes and renal function are normal, LFTs are normal, BNP was normal at 44. Point of care troponin was 0, EKG showed a sinus bradycardia, ventricular rate of [address] segment changes. T-waves are on remarkable. I do not think the bradycardia is significant enough to be contr ibuting to his symptoms most likely. He did have improvement in his blood pressure up to the 130s after fluids and feels considerably better, ambulatory without difficulty. I did an x-ray of his left hip, mild degenerative changes but nothing more acute. I have reviewed all this with the patient and his . At this time, I do not see any acute neurological findings, no evidence of acute blood loss, acute cardiac event, or severe metabolic disruption. It does appear that he might have been somewhat dehydrated. He has is little tremor in his right hand which has been present for some time and I recommended primary care follow-up. If symptoms are persistent, it may be reasonable to have him see Neurology, discussed that he may have a little viral process contributing and may improve simply with time. For acute worsening or new symptoms return at any time to the emergency department. Vital Signs Vital signs: Initial Vital Signs Temperature 96.6 F L 03/16/24 09:46 Temperature Source Temporal Artery Scan 03/16/24 09:46 Pulse Rate 60 03/16/24 09:46 Respiratory Rate 18 03/16/24 09:46 Blood Pressure 101/52 L 03/16/24 09:46 Blood Pressure Mean 68 L 03/16/24 09:46 Blood Pressure Position Supine 03/16/24 09:46 Pulse Oximetry 95 03/16/24 09:46 Oxygen Delivery Method Room Air 03/16/24 09:46 Vital Signs Temperature 96.6 F L 03/16/24 09:46 Pulse Rate 60 03/16/24 09:46 Respiratory Rate 18 03/16/24 09:46 Blood Pressure 101/52 L 03/16/24 09:46 Pulse Oximetry 95 03/16/24 09:46 Oxygen Delivery Method Room Air 03/16/24 09:46 Temperature 96.6 F L 03/16/24 09:46 Pulse Rate 59 L 03/16/24 11:04 Respiratory Rate 18 03/16/24 09:46 Blood Pressure 130/70 03/16/24 11:03 Pulse Oximetry 98 03/16/24 11:04 Oxygen Delivery Method Room Air 03/16/24 09:46 Medications Administered Medications: Discontinued Medications Generic Name Dose Route Start Last Admin Trade Name Freq PRN Reason Stop Dose Admin Sodium Chloride 1,000 mls @ 1,000 mls/hr 03/16/24 10:15 03/16/24 12:41 0.9 % Sodium Chloride 1000 Ml IV 03/16/24 11:14 Infused .Q1H REESE Infusion Medical Decision Making Lab Data Labs: Lab Results 03/16/24 Range/Units 10:20 WBC 3.84 L (4.50-11.00) K/uL RBC 4.65 (4.30-5.90) m/uL Hgb 11.8 L (13.5-17.5) gm/dL Hct 37.7 (37.0-53.0) % MCV 81 (80-100) fL MCH 25 L (26-34) pg MCHC 31 L (32-36) gm/dL RDW Coeff of Anish 17.3 H (11.5-15.5) % Plt Count 152 (140-440) K/uL Neut % (Auto) 47.2 (42.0-72.0) % Lymph % (Auto) 31.0 (20-44) % [place] % (Auto) 12.2 H (0.0-11.0) % Eos % (Auto) 9.1 H (0.0-7.0) % Baso % (Auto) 0.5 (0.0-3.0) % Neut # (Auto) 1.80 (1.7-7.0) K/uL Lymph # (Auto) 1.20 (0.90-2.90) K/uL [place] # (Auto) 0.50 (0.00-0.90) K/UL Eos # (Auto) 0.30 (0.00-0.50) K/uL Baso # (Auto) 0.00 (0.00-0.30) K/uL Abs Immat Gran (auto) 0.00 (0.00-0.30) K/uL Imm/Tot Granulo (auto) 0.0 % Sodium 137 (135-149) mmol/L Potassium 4.2 (3.6-5.1) mmol/L Chloride 104 (96-114) mmol/L Carbon Dioxide 27 (20-32) mmol/L Anion Gap 6 L (7-15) mEq/L BUN 21 (7-30) mg/dL Creatinine 0.8 (0.5-1.5) mg/dL Estimated Creat Clear 60.26 Estimated GFR 94 ml/min Glucose 119 H (60-115) mg/dL Calcium 9.3 (8.4-10.6) mg/dL Total Bilirubin 0.8 (0.1-1.5) mg/dL Direct Bilirubin 0.3 (0.0-0.5) mg/dL AST 34 (12-35) U/L ALT 19 (4-50) U/L Alkaline Phosphatase 67 (40-150) U/L NT-Pro-B Natriuret Pep 44 pg/mL Total Protein 7.7 (6.0-8.3) g/dL Albumin 4.6 (3.3-5.0) g/dL POC Troponin I 0.00 L (0.01-0.04) ng/ml Discharge Plan Discharge Clinical Impression: Unsteadiness on feet, Hip pain, left Patient Disposition: Home, Self-Care Condition: Improved Instructions: Dizziness (ED), Hip Pain (ED) Additional Instructions: Your tests today are overall reassuring. Your MRI shows some chronic sinus disease, but nothing wrong in your brain. Your hip x-ray looks normal aside from mild arthritis. In terms of labs, your white blood cell count and hemoglobin are very slightly low, this is something that can be followed up with your primary care doctor. Otherwise your labs are normal. Your blood pressure is improved after some fluids, and some of your symptoms may be related to some dehydration plus or minus a mild viral syndrome. If this is the case I would expect that you would start feeling better over the next week or so. If symptoms are persistent, it may be reasonable to follow up with Neurology. Please see your primary doctor in a week or so for recheck and to discuss if further evaluation is needed. Return any time for acute worsening. Activity Level: No Restrictions Discharge Diet: Regular Prescriptions: No Action aspirin 81 mg tablet,delayed release (DR/EC) 81 mg PO QDAY azelastine 0.05 % drops 1 drp ophthalmic (eye) BID Qty: 6 3RF tadalafil 20 mg tablet 20 mg PO .as Direc as needed PRN (Reason: sexual activity) Qty: 90 3RF Rx Instructions: 1 tab by mouth every 24-48 hours as needed. fluticasone propionate 50 mcg/actuation blister with device 1 inh inhalation BID multivitamin Tablet 1 tab PO QAM tadalafil 5 mg tablet 5 mg PO QDAY terazosin 2 mg capsule 2 mg PO QHS Qty: 90 3RF rosuvastatin 40 mg tablet 40 mg PO QDAY Qty: 90 3RF Follow Up/Referrals: Taylor Zavala MD [Primary Care Provider] - Stand Alone Forms: [employer] Info Instructions
--- NOTE | 2024-03-16 11:38 | CRLHL7_ITS ---
For Patients: As a result of the Century Cures Act, medical imaging exams and procedure reports are released immediately into your electronic medical record. You may view this report before your referring provider. If you have questions, please contact your health care provider. Indication: Unsteady on feet Technique: Left hip 2 views. AP pelvis one view. Comparison: None Findings: Bones: Alignment is normal. No fractures or bone lesions. Joint spaces: Mild bilateral acetabular osteophytosis. No significant joint space narrowing on this supine radiograph. Soft tissues: Hernia repair mesh metallic coils project over the pelvis. Otherwise, unremarkable. Impression: No acute fracture or dislocation. Mild bilateral hip joint degenerative arthrosis. Dictated by Rishi Carlton MD @ 03/16/2024 12:59:36 PM (Electronically Signed)
== END 2024-03-16 13:09 | disposition home or self-care (01) ==
PROVIDERS: Emergency Provider Emergency Medicine; PCP Family Medicine
DX: R26.81 Unsteadiness on feet (principal); M25.552 Pain in left hip
CPT/HCPCS: 36415; 70551; 73502; 80048; 80076; 83880; 84484; 85025; 93005; 94761; 96360; 99284; 99285; J7030

== ENCOUNTER 2024-05-09 10:47 | Outpatient (CLI) | payer MEDICARE, SELFPAY | END 2024-05-09 10:48 | disposition home or self-care (01) | PROVIDERS: Visit Provider Family Medicine | DX: Z00.00 Encounter for general adult medical examination without abnormal findings (principal); D64.9 Anemia, unspecified; E78.5 Hyperlipidemia, unspecified; D72.819 Decreased white blood cell count, unspecified; N40.1 Benign prostatic hyperplasia with lower urinary tract symptoms; K20.0 Eosinophilic esophagitis; R35.1 Nocturia; Z13.1 Encounter for screening for diabetes mellitus; Z13.6 Encounter for screening for cardiovascular disorders; Z11.59 Encounter for screening for other viral diseases; Z12.5 Encounter for screening for malignant neoplasm of prostate | CPT/HCPCS: 80053; 80061; 82607; 82746; 86803; G0103 ==

== ENCOUNTER 2024-12-26 08:42 | Outpatient (CLI) | payer MEDICARE, SELFPAY | END 2024-12-26 08:43 | disposition home or self-care (01) | LOC: RAD 08:45 | PROVIDERS: PCP Family Medicine; Visit Provider Internal Medicine | DX: I25.810 Atherosclerosis of coronary artery bypass graft(s) without angina pectoris (principal); I35.1 Nonrheumatic aortic (valve) insufficiency | CPT/HCPCS: 93306 ==

== ENCOUNTER 2025-06-12 11:55 | Outpatient (CLI) | payer MEDICARE, SELFPAY | END 2025-06-12 11:56 | disposition home or self-care (01) | LOC: FRMREF 11:56 | PROVIDERS: PCP Family Medicine; Visit Provider Family Medicine | DX: K20.0 Eosinophilic esophagitis (principal); D64.9 Anemia, unspecified | CPT/HCPCS: 80053; 80061; G0103 ==

== ENCOUNTER 2025-06-27 12:49 | Outpatient (CLI) | payer MEDICARE, SELFPAY | END 2025-06-27 12:50 | disposition home or self-care (01) | LOC: NFLDREF 06-30 11:33 | PROVIDERS: PCP Family Medicine; Referring Provider Family Medicine; Visit Provider Family Medicine | DX: D64.9 Anemia, unspecified (principal); D72.819 Decreased white blood cell count, unspecified | CPT/HCPCS: 82607; 82728; 83540; 83550 ==

== ENCOUNTER 2025-07-24 16:05 | Outpatient (CLI) | payer MEDICARE, SELFPAY ==
[2025-07-24 16:30] LABS: Creatinine* 0.9 mg/dL (0.5-1.5); Estimated Glomerular Filt Rate 90 ml/min
--- NOTE | 2025-07-24 16:45 | CRLHL7_ITS ---
For Patients: As a result of the 21st Century Cures Act, medical imaging exams and procedure reports are released immediately into your electronic medical record. You may view this report before your referring provider. If you have questions, please contact your health care provider. INDICATION: Abnormal weight loss. TECHNIQUE: CT chest, abdomen and pelvis acquired with 97 mL Isovue 370 IV contrast. COMPARISON: None. FINDINGS: CHEST: Cardiovascular structures: Heart size is normal. Thoracic aorta and main pulmonary artery are normal in caliber. CABG. Mediastinum and regina: No mass or adenopathy. Small hiatal hernia. Lungs and pleura: 5 mm right middle lobe nodule image 54 series 3. 5 mm nodule left lower lobe image 63. 4 mm nodule right lower lobe image 60. Few additional scattered micronodules in the lungs. Oval nodules along the right minor fissure measuring 6.6 mm on image 55 and 7 mm on image 59, likely benign. Chest wall and axilla: No mass or adenopathy. Bones: Congenital fusion T5 and T6. Sternotomy. ABDOMEN AND PELVIS: Liver: Unremarkable. Gallbladder and bile ducts: Unremarkable. Pancreas: Unremarkable. Spleen: Unremarkable. Adrenal glands: Unremarkable. Kidneys: Unremarkable. GI tract: Unremarkable. Vascular structures: Unremarkable. Lymph nodes: Unremarkable. Miscellaneous: Bilateral inguinal hernia repairs. Pelvic Organs: Unremarkable. Bones: No suspicious bone lesions. Unremarkable for age. IMPRESSION: 1. No specific cause for weight loss identified. 2. A few pulmonary nodules measuring 5 mm. Follow-up guidelines below. [employer] GUID[employer]IN[employer] - SOLID NODULES: MULTIPLE LOW RISK - nodule less than 6 mm: No routine follow-up. - nodule 6-8 mm: CT at 3-6 months, then consider CT at 18-24 months. - nodule greater than 8 mm: CT at 3-6 months, then consider CT at 18-24 months. MULTIPLE HIGH RISK - nodule less than 6 mm: Optional CT at 12 months. - nodule 6-8 mm: CT at 3-6 months, then at 18-24 months. - nodule greater than 8 mm: CT at 3-6 months, then at 18-24 months. Please note that all CT scans at this facility use dose modulation, iterative reconstruction, and/or weight-based dosing when appropriate to reduce radiation dose to as low as reasonably achievable. Dictated by Enmanuel Car MD @ 07/25/2025 2:19:21 PM (Electronically Signed)
== END 2025-07-24 16:06 | disposition home or self-care (01) ==
LOC: CT 16:06
PROVIDERS: PCP Family Medicine; Visit Provider Internal Medicine Hematology & Oncology
DX: R63.4 Abnormal weight loss (principal); R91.8 Other nonspecific abnormal finding of lung field; Z95.1 Presence of aortocoronary bypass graft; K44.9 Diaphragmatic hernia without obstruction or gangrene; Q76.49 Other congenital malformations of spine, not associated with scoliosis; Z98.890 Other specified postprocedural states
CPT/HCPCS: 36415; 71260; 74177; 82565; Q9967